=== PATIENT | male | born 1970 | race Caucasian/White ===

== ENCOUNTER → 2016-07-25 | Outpatient (CLI) | payer BC ==
[~2016-07-25] MED LIST: AMLO5TAB2 PO; BUDE10.2 IH; CLON1TAB3 PO; IBUP200T58 PO; LOSA25TA4 PO; OMEP20TA63 PO; POTA10TA10 PO
[2016-07-25 13:26] LABS: BASO % 1 % (0-3); EOS % 2 % (0-3); HEMATOCRIT 47.8 % (39.0-53.0); HEMOGLOBIN 16.7 g/dL (13.0-17.5); LYMPH # 2.1 x10^3/uL (1.0-4.8); LYMPH % 29 % (24-48); MEAN CORPUSCULAR HEMOGLOBIN 31 pg (25-35); MEAN CORPUSCULAR HGB CONC 35 g/dL (31-37); MEAN CORPUSCULAR VOLUME 90 fL (79-100); MONO % 9 % (0-9); NEUT % 60 % (31-73); PLATELET COUNT 189 x10^3/uL (140-400); RED BLOOD COUNT 5.33 x10^6/uL (4.30-5.70); RED CELL DISTRIBUTION WIDTH 12.9 % (11.5-14.5); WHITE BLOOD COUNT 7.4 x10^3/uL (4.0-11.0)
--- NOTE | 2016-07-25 13:30 | EKG ---
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
[2016-07-25 13:42] LABS: ALBUMIN 4.3 g/dL (3.4-5.0); ALBUMIN/GLOBULIN RATIO 1.1 (1.0-1.7); CALCIUM 9.4 mg/dL (8.5-10.1); GFR 80.4; POTASSIUM 3.9 mmol/L (3.5-5.1); TOTAL BILIRUBIN 1.8 mg/dL (0.2-1.0); TOTAL PROTEIN 8.1 g/dL (6.4-8.2)
--- NOTE | 2016-07-30 15:04 | PREOP HP ---
DATE OF SERVICE: 08/01/2016 HISTORY OF PRESENT ILLNESS: The patient is a pleasant 45-year-old, who I saw last in 02/2016. At that time, he had a herniated disk on the left L4-L5 and had a few symptoms in his lower extremities other than numbness. He says that since that time, he has had greater and greater difficulties. He says that his back is crooked now. He has right-sided back pain frequently. The numbness in his left leg, he says has become an uncomfortable numbness. He says when he is up during the day, he notices left foot is flapping on to the ground. He stumbles frequently. He has not fallen. He says since I saw him last, he has been resting and limiting his activities, in spite of this, he has worsened significantly. PAST MEDICAL HISTORY: Asthma, tonsillitis. PAST SURGICAL HISTORY: Cholecystectomy in 2005, tonsil/nasal surgery in 2006. FAMILY HISTORY: Diabetes, heart disease/problems, hypertension. SOCIAL HISTORY: . . Exercises monthly. Denies substance abuse. Denies tobacco use. Drinks alcohol one to two times per year. Drinks coffee daily. ALLERGIES: CODEINE. CURRENT MEDICATIONS: Clonazepam ____ metformin, Prilosec, ciuc-ajh-shfrmun Advil. REVIEW OF SYSTEMS: A 12-point review of systems was obtained and is noncontributory except for that mentioned above. NEUROSURGERY EXAMINATION: GENERAL APPEARANCE: Alert, pleasant, no acute distress. HEAD: Normocephalic and atraumatic. SKIN: Warm and dry. MUSCULOSKELETAL: Lumbar paraspinal muscle bulk is normal, restricted range of motion of the lumbar spine, [id number] tenderness of lower lumbar spine with palpation, normal range of motion of the lower extremities bilaterally. EXTREMITIES: No clubbing, cyanosis, or edema. NEUROLOGIC: Alert and oriented x 3, normal recent and remote memory, strength 5/5 in bilateral lower extremities except for 4+/5 left EHL, sensory was intact to light touch in the lower extremities bilaterally except for a decrease in sensation involving the anterolateral left leg and dorsum of his left foot, reflexes were present and symmetric in bilateral lower extremities, negative straight leg raising on the right, positive straight leg raising with buttock and posterior leg pain on the left relieved maneuver, abnormal gait favoring his left leg. IMAGING: Reviewed. I reviewed the lumbar MRI scan from 03/2016. On that study, there is a large left paramedian disk herniation which extends inferior to the disk space behind the L5 body centrally and left-sided which fills and obliterate the left lateral recess. Additionally, there appears to be a bilateral spondylosis at L5 without anterolisthesis. ASSESSMENT: Intervertebral disk disorders with radiculopathy, lumbar region. PLAN: A large extruded, inferiorly and herniated left-sided disk at L4-L5 is causing increasing left L5 radicular symptoms including weakness and numbness and pain. The problem has progressed over the last 4 months and is quite significant along with muscle spasms in his lower back. I recommended lumbar microsurgery for him. I spoke about the surgery and the risks involved. We also discussed the expected postoperative course. He would like to go ahead. We will make the arrangements. TERRELL PATTERSON MD DR: DARYN/milvia JOB#: [id number] / [id number]
== END | disposition home or self-care (01) ==
LOC: SURGPAT 11:55
PROVIDERS: ATTEND Neurological Surgery
DX: M51.16 Intervertebral disc disorders with radiculopathy, lumbar region (principal)
CPT/HCPCS: 36415; 80053; 83036; 85027; 87641; 93005

== ENCOUNTER 2016-08-01 07:08 | Observation (INO) | payer BC ==
[~2016-08-01] VITALS: Ht 182.9 cm; Wt 123.6 kg
[2016-08-01] VITALS (11 sets, daily range): BP systolic 108–135; BP diastolic 60–95
[~2016-08-01 07:08] MED LIST changes: +BACITRACIN 50,000 UNIT in IV NORMAL SALINE 1000ML BAG 1,000 ML IRR ONE; +CEFAZOLIN 2GM PREMIX 50 ML IV PRN; +FENTANYL PF 100 MCG/2 ML VIAL. IV PRN; +IV RINGERS,LACTATED 1000ML 1,000 ML IV SCH; +LIDOCAINE 1% 1 ML SYRINGE. ID PRN; +ONDANSETRON PF 4 MG/2 ML VIAL. IV PRN; +PROCHLORPERAZINE 10 MG/2 ML VIAL. IV PRN
[2016-08-01] MEDS ORDERED: THROMBIN TOPICAL 20,000 UNIT SPRAY.SYRN KIT TP ONE (07:11)
[2016-08-01] MEDS ORDERED: GELATIN SPONGE SIZE 100. ONE (07:11)
[2016-08-01] MEDS ORDERED: KETOROLAC 60 MG/2 ML INJ FOR OR. ONE (07:11)
[2016-08-01] MEDS ORDERED: BUPIVAC MPF-EPI 0.5%-1:200000 30 ML VIAL. ONE (07:11)
[2016-08-01] MEDS ORDERED: VANCOMYCIN 1GM IVPB FOR OMNI 250 ML IV PRN (08:00)
[2016-08-01] MEDS ORDERED: DEXAMETHASONE SOD PHOS 20 MG/5 ML VIAL. ONE (08:07)
[2016-08-01] MEDS ORDERED: ROCURONIUM 50 MG/5 ML VIAL. ONE (08:07)
[2016-08-01] MEDS ORDERED: PROPOFOL 20 ML IV ONE (08:07)
[2016-08-01] MEDS ORDERED: MIDAZOLAM HCL/PF 2 MG/2 ML VIAL. ONE ×2 (08:07→09:07)
[2016-08-01] MEDS ORDERED: ONDANSETRON PF 4 MG/2 ML VIAL. ONE (08:07)
[2016-08-01] MEDS ORDERED: REMIFENTANIL 2 MG VIAL. IV ONE (08:07)
[2016-08-01] MEDS ORDERED: LIDOCAINE 2% 100 MG/5 ML SYRINGE. ONE (08:07)
[2016-08-01] MEDS ORDERED: PROPOFOL 50 ML IV ONE (08:07)
[2016-08-01] MEDS ORDERED: MINERAL OIL/PETROLATUM,WHITE OPHTH OINT 3.5GM TUBE. ONE (08:08)
[2016-08-01] MEDS ORDERED: 0.9 % SODIUM CHLORIDE 50 ML VIAL. IJ ONE (08:08)
[2016-08-01] MEDS ORDERED: GLYCOPYRROLATE 1 MG/5 ML VIAL. ONE (09:18)
[2016-08-01] MEDS ORDERED: PHENYLEPHRINE 10 MG/ML VIAL. ONE (10:04)
[2016-08-01] MEDS ORDERED: DESFLURANE > 120 MINUTES IH ONE (10:05)
[2016-08-01] MEDS ORDERED: VANCOMYCIN 1GM IVPB FOR OMNI 250 ML IV ONE (10:30)
[2016-08-01] MEDS ORDERED: 0.9 % SODIUM CHLORIDE 10 ML DISP.SYRIN. IV PRN (11:45)
[2016-08-01] MEDS ORDERED: DIPHENHYDRAMINE HCL 25 MG CAPSULE PO PRN (11:45)
[2016-08-01] MEDS ORDERED: ONDANSETRON PF 4 MG/2 ML VIAL. IV PRN (11:45)
[2016-08-01] MEDS ORDERED: MAGNESIUM HYDROXIDE 2,400 MG/30 ML ORAL.SUSP. PO PRN (11:45)
[2016-08-01] MEDS ORDERED: ZOLPIDEM 5 MG TABLET. PO PRN (11:45)
[2016-08-01] MEDS ORDERED: DIPHENHYDRAMINE 50 MG/ML VIAL. IV PRN (11:45)
[2016-08-01] MEDS ORDERED: MAG HYDROX/ALUMINUM HYD/SIMETH 30 ML ORAL.SUSP PO PRN (11:45)
[2016-08-01] MEDS ORDERED: ACETAMINOPHEN 325 MG TABLET. PO PRN (11:45)
[2016-08-01] MEDS ORDERED: CALCIUM CARBONATE 500 MG TAB.CHEW PO PRN (11:45)
[2016-08-01] MEDS ORDERED: FENTANYL PF 100 MCG/2 ML VIAL. IV PRN (11:45)
[2016-08-01] MEDS: FENTANYL PF 100 MCG/2 ML VIAL. IV PRN ×6 (11:53→18:48)
[2016-08-01] MEDS ORDERED: POTASSIUM CL 20MEQ D5-0.45NACL 1,000 ML IV SCH (12:30)
[2016-08-01] MEDS: CYCLOBENZAPRINE 10 MG TABLET. PO PRN ×2 (14:25→21:52)
[2016-08-01] MEDS: ALBUTEROL SULFATE 2.5 MG/3 ML NEBU. NEB SCH ×2 (15:48→20:37)
--- NOTE | 2016-08-01 16:17 | OP ---
DATE OF SURGERY: 08/01/2016 PREOPERATIVE DIAGNOSES: Herniated lumbar disk L4-L5, left with inferior disk fragments. POSTOPERATIVE DIAGNOSES: Herniated lumbar disk L4-L5, left with inferior disk fragments. OPERATION PERFORMED: Hemilaminotomy and microdiskectomy L4-L5, left. E COMMERCE SPECIALIST: BRIGIDA Kidd assisted with the exposure of the microdiskectomy as well as the closure. OPERATIVE INDICATIONS: The patient is a very pleasant 45-year-old man who several months ago developed severe back and left leg pain, which was followed by numb, dysesthetic pain in his left leg, that latter problem failed to improve and he also had difficulty with significant muscle spasm. I followed him for about 6 months, the problems did not resolve, he limited his activities and did not improve and I recommended lumbar microsurgery. I spoke with him about the surgery, the risks, the technique and the expected postoperative course and he wished to go ahead. DESCRIPTION OF PROCEDURE: Following general endotracheal anesthesia, the patient was positioned prone on the Brennen table. His lumbar region was prepped and draped in the standard fashion. DEJUAN hose and AV impulse boots were applied for DVT prophylaxis. A microscope was draped. Fluoroscopy was draped and brought into the field. Vancomycin 1 g was given prior to the surgery. Using fluoroscopic guidance, an incision was made directly over the L4-L5 interspace. I dissected down to skin and subcutaneous tissue and reflected the paraspinal muscles laterally and I placed a [place] micro disk retractor. I brought in the microscope, and using the high speed air drill, I burred down a generous hemilaminotomy. The superior portion of lamina of L5 on this side was thickened and somewhat abnormal, but I gently drilled down through this and visualized the dura and the exiting root and I also drilled superiorly generous hemilaminotomy. I trimmed away thickened ligamentum flavum, exposed the dura and beneath this was the L5 root, which was covered in scar and densely tethered to the posterior aspect of the L5 body as it passed beneath the disk space and then around the pedicle moving inferiorly. I gently freed the scar on the dorsal surface of the root. There were some large veins, which I coagulated and divided and this allowed me to gently mobilize the root. The inferior surface was scarred to the underlying posterior ligament, which was covered in large confluent veins, I coagulated these and incised the annulus, gently retracted the root with a micro nerve root retractor. I performed a diskectomy with pituitary rongeurs. As I worked and removed disk fragments, this came from within the disk space and from the subligamentous position and also as I created exposure, there were few subligamentous disk fragments, which were teased back and removed. At this point, then the root was very free, I explored very carefully. There were no retained fragments. I did confirm my position during the operation fluoroscopically to ensure that I had a wide and generous exposure directly over the regions of compression. At any rate, at the end of the operation, I had a partial foraminotomy. The nerve root was quite free throughout its course. I irrigated copiously with antibiotic solution. Hemostasis was excellent. I removed the retractor, obtained hemostasis in the muscle and then I closed the wound in layers with absorbable suture. The skin was closed with a 4-0 subcuticular stitch. I thought the surgery went very well and there were no problems with the monitoring throughout the case. Again, I was quite pleased with the surgery. TERRELL PATTERSON MD DR: DARYN/milvia JOB#: [id number] / [id number]
[2016-08-01] MEDS: BUDESONIDE 0.5 MG/2 ML NEBU. NEB SCH (20:37)
[2016-08-01] MEDS ORDERED: CLONAZEPAM 1 MG TABLET. PO SCH (21:00)
[2016-08-01] MEDS ORDERED: IBUPROFEN 600 MG TABLET. PO SCH (21:00)
[2016-08-01] MEDS: DOCUSATE SODIUM 100 MG CAPSULE. PO SCH (21:48)
[2016-08-02 07:00] VITALS: BP 115/88
[2016-08-02] MEDS: BUDESONIDE 0.5 MG/2 ML NEBU. NEB SCH (07:10)
[2016-08-02] MEDS: ALBUTEROL SULFATE 2.5 MG/3 ML NEBU. NEB SCH ×2 (07:10→11:33)
[2016-08-02] MEDS ORDERED: PANTOPRAZOLE 40 MG TABLET.DR. PO SCH (07:30)
[2016-08-02] MEDS ORDERED: POTASSIUM CHLORIDE 20 MEQ TABLET.ER. PO SCH (08:00)
[2016-08-02] MEDS: CYCLOBENZAPRINE 10 MG TABLET. PO PRN (08:53)
[2016-08-02] MEDS: DOCUSATE SODIUM 100 MG CAPSULE. PO SCH (08:53)
[2016-08-02] MEDS: FENTANYL PF 100 MCG/2 ML VIAL. IV PRN (08:55)
[2016-08-02] MEDS ORDERED: NON FORMULARY ITEM (Budesonide/Formoterol Fumarate (Symbicort 160-4.5 Mcg Inhaler) 1 PUFF) IH SCH (09:00)
[2016-08-02] MEDS ORDERED: LOSARTAN POTASSIUM 25 MG TABLET. PO SCH (09:00)
[2016-08-02] MEDS ORDERED: AMLODIPINE BESYLATE 5 MG TABLET. PO SCH (09:00)
[2016-08-02] MEDS ORDERED: OXYCODONE IR 5 MG TABLET. PO PRN (10:45)
[2016-08-02] MEDS ORDERED: HYDROCODONE/APAP 7.5/325MG TABLET. PO PRN ×2 (10:45)
[2016-08-02 11:00] VITALS: BP 106/61
--- NOTE | 2016-08-02 16:42 | PREOP HP ---
DATE OF SERVICE: 08/01/2016 HISTORY OF PRESENT ILLNESS: The patient is a pleasant 45-year-old, who I saw last in 02/2016. At that time, he had a herniated disk on the left L4-L5 and had a few symptoms in his lower extremities other than numbness. He says that since that time, he has had greater and greater difficulties. He says that his back is crooked now. He has right-sided back pain frequently. The numbness in his left leg, he says has become an uncomfortable numbness. He says when he is up during the day, he notices left foot is flapping on to the ground. He stumbles frequently. He has not fallen. He says since I saw him last, he has been resting and limiting his activities, in spite of this, he has worsened significantly. PAST MEDICAL HISTORY: Asthma, tonsillitis. PAST SURGICAL HISTORY: Cholecystectomy in 2005, tonsil/nasal surgery in 2006. FAMILY HISTORY: Diabetes, heart disease/problems, hypertension. SOCIAL HISTORY: . . Exercises monthly. Denies substance abuse. Denies tobacco use. Drinks alcohol one to two times per year. Drinks coffee daily. ALLERGIES: CODEINE. CURRENT MEDICATIONS: Clonazepam ____ metformin, Prilosec, elgb-ibp-sludyxj Advil. REVIEW OF SYSTEMS: A 12-point review of systems was obtained and is noncontributory except for that mentioned above. NEUROSURGERY EXAMINATION: GENERAL APPEARANCE: Alert, pleasant, no acute distress. HEAD: Normocephalic and atraumatic. SKIN: Warm and dry. MUSCULOSKELETAL: Lumbar paraspinal muscle bulk is normal, restricted range of motion of the lumbar spine, [id number]-ve-gbqgoanq tenderness of lower lumbar spine with palpation, normal range of motion of the lower extremities bilaterally. EXTREMITIES: No clubbing, cyanosis, or edema. NEUROLOGIC: Alert and oriented x 3, normal recent and remote memory, strength 5/5 in bilateral lower extremities except for 4+/5 left EHL, sensory was intact to light touch in the lower extremities bilaterally except for a decrease in sensation involving the anterolateral left leg and dorsum of his left foot, reflexes were present and symmetric in bilateral lower extremities, negative straight leg raising on the right, positive straight leg raising with buttock and posterior leg pain on the left relieved maneuver, abnormal gait favoring his left leg. IMAGING: Reviewed. I reviewed the lumbar MRI scan from 03/2016. On that study, there is a large left paramedian disk herniation which extends inferior to the disk space behind the L5 body centrally and left-sided which fills and obliterate the left lateral recess. Additionally, there appears to be a bilateral spondylosis at L5 without anterolisthesis. ASSESSMENT: Intervertebral disk disorders with radiculopathy, lumbar region. PLAN: A large extruded, inferiorly and herniated left-sided disk at L4-L5 is causing increasing left L5 radicular symptoms including weakness and numbness and pain. The problem has progressed over the last 4 months and is quite significant along with muscle spasms in his lower back. I recommended lumbar microsurgery for him. I spoke about the surgery and the risks involved. We also discussed the expected postoperative course. He would like to go ahead. We will make the arrangements. TERRELL PATTERSON MD DR: DARYN/milvia JOB#: [id number] / [id number]
--- NOTE | 2016-08-05 11:25 | PATHOLOGY ---
PATHOLOGY REPORT * * * * * * * * FINAL DIAGNOSIS: "Lumbar disc and decompression," removal: - Fragments of fibrocartilage with focal degenerative changes. - Fragments of unremarkable bone, skeletal muscle, and fibroadipose tissue. (JAIME:; d/t: 08/05/16) REPORT ELECTRONICALLY SIGNED BY: Oren Awad M.D. DATE/TIME: 08/05/2016 11:24 * * * * * * * * GROSS PATHOLOGY: Received in formalin labeled "Yumiko Chavez, lumbar disc and decompression" are multiple segments of whitley, rubbery, and gritty tissue admixed with bone. The specimen measures 4.2 x 3.8 x 1.0 cm in aggregate dimensions. The tissue is submitted representatively in cassette A1, following decalcification. (CAA; 08/04/2016) INITIAL CPT CODE(S): A; 50320, 38666 Professional services performed [place] [facility] [place] [address] Technical services performed by [facility] at [address] [place] [address]. SPECIMEN(S) RECEIVED: A.Lumbar disc and decompression CLINICAL HISTORY: Lumbar herniated disc PATIENT: YUMIKO CHAVEZ /AGE: 4 1970 (Age: 45) PATIENT #: [id number] ALT CASE #: SPECIMEN COLLECTION DATE: 08/01/2016 SPECIMEN RECEIVED DATE: 08/01/2016 [facility] - [address] [place] [address] - PHONE: [phone] * * * END OF REPORT * * *
== END 2016-08-02 13:12 | disposition home or self-care (01) ==
LOC: SURG 07:08 → EDUNIT# 08:30 → 4 NORTH 12:10
PROVIDERS: ADMIT Neurological Surgery; ATTEND Neurological Surgery
DX: M51.16 Intervertebral disc disorders with radiculopathy, lumbar region (principal); J45.909 Unspecified asthma, uncomplicated; Z90.49 Acquired absence of other specified parts of digestive tract; Z83.3 Family history of diabetes mellitus; Z82.49 Family history of ischemic heart disease and other diseases of the circulatory system
CPT/HCPCS: 63030; 76000; 82947; 94250; 94640; 94760; 96374; 96376; 97161; G0378; G0379; J1100; J1885; J2250; J2704; J3010; J3370; J3490; J7030; J7120; J0780; J2405